=== PATIENT | male | born 1960 | race Caucasian/White ===

== ENCOUNTER 2017-12-31 19:28 | Emergency (ER) | payer MEDICAID, OTHER ==
[2017-12-31] MEDS ORDERED: SULFAMETHOX/TMP 800/160 MG 1 TAB PO ONE (19:54)
[2017-12-31] MEDS ORDERED: CEPHALEXIN 500 MG CAP PO ONE (19:54)
--- NOTE | 2017-12-31 19:57 | EDPHY ---
General Time Seen by Provider: 12/31/17 19:45 Narrative: CHIEF COMPLAINT: Possible finger infection HISTORY OF PRESENT ILLNESS: Patient complains of pain and possible infection on the right middle finger. First noted some redness and swelling on 2 days ago. [id number]. Worse with palpation and movement. No fever. No difficulty bending or straightening the finger. Does not chew is fingernails. Has not injected anything. No previous incidence of paronychia or felon. Has taken [id number] anti- inflammatories with mild improvement. Attempted to contact his physician today but was notified that he is no longer patient of their clinic. No other associated complaints or modifying factors. TETANUS STATUS: Up-to-date MEDICAL/SURGICAL/SOCIAL HISTORY: HIV positive with undetectable viral load. CD4 count reportedly normal. Two drug therapy consistently. REVIEW OF SYSTEMS: Ten systems reviewed and are negative unless otherwise noted in the HPI EXAMINATION General Appearance: Alert, no distress Head: normocephalic, atraumatic Cardiovascular: Symmetric radial pulses 2+. Brisk cap refill on the affected finger pain Neurological: A&O, 2 point sensation intact in the right middle finger. Interossei strength symmetric. Skin: Warm and dry, no rash. Localized fluctuance and erythema over the right middle finger, distal phalanx medial nail fold. No warmth to the finger. No lymphangitis. No cellulitis of the hand or wrist. No subcutaneous emphysema. Extremities: Mild tenderness in the right middle finger distal phalanx over the area of fluctuance. Full flexion extension including the superficialis and profundus of the flexor apparatus. No evidence of septic joint. DIFFERENTIAL DIAGNOSES: Including but not limited to paronychia, septic joint, cellulitis, hand abscess , felon MDM: 7:55 p.m. Paronychia of the right middle finger. This is an isolated area of abscess. I do not appreciate any evidence of septic joint, tenosynovitis or cellulitis of the hand. Full flexion extension retained without difficulty. Vital signs are within normal limits. He is neurovascular intact. I administered a digital block. Proceed with incision and drainage. 8:15 p.m. Successful incision and drainage of a right paronychia without difficulty. Tolerated well. Brisk cap refill postprocedure. Nonocclusive dressing placed. We discussed daily wound care. We discussed antibiotic therapy which was commenced here. We discussed follow up with hand surgeon as documented. Patient is leaving town tomorrow for [place] and will follow up within emergency department there should he develop any signs of further infection should that develop. He is comfortable this plan and discharged home stable condition PROCEDURE: Incision and Drainage, paronychia Consent: Verbal Location: Right middle finger paronychia Length: 1 cm Complexity: Simple Anesthesia: Digital block Procedure description: After verbal consent time-out, the right middle finger was prepped and, sterile fashion. 15. Blade was used to make a small incision over the area of fluctuance. 3 mL of purulence extruded. No pulsatile bleeding. Tolerated well. Irrigated with 20 cc sterile saline. Expressed: 3 mL purulence Wound care: Nonocclusive, daily wound care as discussed Follow-up: 2 day wound check PROCEDURE: Digital Block Indication: Abscess Consent: Verbal Location: Right middle finger Anesthesia: Lidocaine 1% plain, 0.25% Marcaine plain, 5mL Description: Base of the finger was prepped. The above was infused without difficulty. Tolerated well. Good anesthesia. Complications: None SUPERVISION: This patient was independently evaluated without direct involvement of or examination by the attending physician. ED Precautions: Worsening pain. Erythema, edema, cyanosis, pallor, paresthesia or anesthesia. - History Smoking Status: Never smoked - Objective Vital Signs: Initial Vital Signs Temperature (C) 98.1 F 12/31/17 19:32 Heart Rate 58 L 12/31/17 19:32 Respiratory Rate 16 12/31/17 19:32 Blood Pressure 153/96 H 12/31/17 19:32 O2 Sat (%) 93 12/31/17 19:32 O2 Delivery Mode Room Air Allergies/Adverse Reactions: No Known Allergies Allergy (Unverified 12/31/17 19:31) Home Medications: Medication Instructions Recorded Cephalexin [Keflex (*)] 500 mg PO QID #28 cap 12/31/17 Hydrocodone/APAP 5/325 [[place] 1 - 2 tab PO Q4H PRN #5 tab 12/31/17 5/325 (*)] Issentress 12/31/17 Sulfamethox/Tmp 800/160 mg 1 tab PO BID 7 Days tab 12/31/17 [Bactrim Ds] Truvada 100 mg-150 mg Tablet 12/31/17 Departure - Departure Disposition: Home, Routine, Self-Care Clinical Impression: Paronychia of right middle finger Condition: Good Instructions: Paronychia (ED), Incision and Drainage (ED) Additional Instructions: 1. Daily wound care as discussed 2. Keep your dressing in place for 24-48 hours 3. Antibiotics as prescribed to completion 4. Pain medication as prescribed as needed 5. ED precautions as discussed Referrals: JANIA MCGREGOR [Other] - As per Instructions Abelino Shah MD [Medical Doctor] - As per Instructions Prescriptions: Cephalexin [Keflex (*)] 500 mg PO QID #28 cap Hydrocodone/APAP 5/325 [[place] 5/325 (*)] 1 - 2 tab PO Q4H PRN #5 tab PRN Reason: Pain, Moderate Sulfamethox/Tmp 800/160 mg [Bactrim Ds] 1 tab PO BID 7 Days tab
[2017-12-31 20:19] VITALS: BP 124/91; PULSE 50; RESP 18; TEMP 100; O2SAT 95
== END 2017-12-31 20:15 | disposition home or self-care (01) ==
PROC: 0H9FXZZ Drainage of Right Hand Skin, External Approach (ICD-10-PCS; principal; 2017-12-31)
DX: L03.011 Cellulitis of right finger (principal)